=== PATIENT | female | born 1955 | race Caucasian/White ===

== ENCOUNTER 2019-02-02 14:26 | Inpatient (IN) ==
[2019-02-02] MEDS ORDERED: DILAUDID IV ONE ×4 (14:46→20:20)
[2019-02-02] MEDS ORDERED: ZOFRAN IV ONE (15:03)
[2019-02-02] MEDS ORDERED: NS 1,000 ML IV ONE (15:03)
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
[2019-02-02 16:45] LABS: BASO# 0.01 X1000 (0.0-0.2); BASO% 0.1 % (0.0-0.8); EOS# 0.01 X1000 (0.0-0.7); EOS% 0.1 % (0.0-10.0); HEMATOCRIT 37.7 % (37.0-47.0); HEMOGLOBIN 12.4 g/dL (12.0-16.0); IMM GRAN# 0.04 X1000 (0.0-0.04); IMM GRAN% 0.3 % (0.0-0.5); LYMPH# 1.19 X1000 (1.2-3.4); LYMPH% 8.1 % (20.5-51.1); MCH 28.8 PG (27-31); MCHC 32.9 g/dL (33-37); MCV 87.7 FL (81-99); MONO# 0.69 X1000 (0.11-0.59); MONO% 4.7 % (1.7-9.3); MPV 10.5 FL (7.4-10.4); NEUT# 12.72 X1000 (1.4-6.5); NEUT% 86.7 % (42.2-75.2); PLT 137 X1000 (130-400); RDW 12.9 % (11.5-14.5); WBC 14.66 X1000 (4.8-10.8)
[2019-02-02 16:47] LABS: INR 1.2; PROTIME 15.4 Seconds (11.0-16.0); PTT 29.4 Seconds (22.3-41.8)
[2019-02-02 17:10] LABS: CHLORIDE 106 mmol/L (98-107); POTASSIUM 3.7 mmol/L (3.5-5.1); SODIUM 143 mmol/L (136-145)
[2019-02-02 17:11] LABS: AGAP 13; ALB/GLOB RATIO 1.6; ALBUMIN 4.1 g/dL (3.5-5.0); ALKALINE PHOSPHATASE 83 U/L (32-104); BUN 15 mg/dL (8-22); CALCIUM 8.3 mg/dL (8.8-10.2); COSMO 290; CREATININE 0.6 mg/dL (0.5-0.9); ESTIMATED GFR > 60; GLUCOSE 169 mg/dL (70-104); GOT 26 U/L (10-30); GPT 17 U/L (10-36); TCO2 24 mmol/L (25-35); TOTAL BILIRUBIN 0.92 mg/dL (0.20-1.00); TOTAL PROTEIN 6.7 g/dL (6.3-8.3)
[2019-02-02 17:30] LABS: ALLEN TEST YES; BLOOD TYPE ARTERIAL; HCO3-(ACT) 24.1 mmoll (20.0-26.0); METHB 1.3 % (0.0-1.5); MODALITY CANNULA; O2(CT) 15.9 mL/dL (15.0-23.0); PCO2(98.6) 45 mmHg (35-45); PO2(98.6) 75 mmHg (60-100); SAMPLE BLOOD; SAO2 97.9 % (95.0-100.0); THB 12.1 g/dL (11.5-17.4); pH(98.6) 7.35 (7.35-7.45)
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
[2019-02-02] MEDS ORDERED: ZOSYN 4.5 GM in NS 100 ML IV ONE (19:12)
[2019-02-02] MEDS ORDERED: VANCOMYCIN 1 GM/NS 1 GM/250 ML IVPB IV ONE (19:12)
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
[2019-02-02 19:50] LABS: URINE SOURCE CATH
[2019-02-02 19:52] LABS: BILIRUBIN URINE NEGATIVE (NEGATIVE); BLOOD URINE SMALL (NEGATIVE); COLOR YELLOW; GLUCOSE URINE NEGATIVE (NEGATIVE); KETONE URINE NEGATIVE (NEGATIVE); LEUKOCYTES URINE NEGATIVE (NEGATIVE); NITRITE URINE NEGATIVE (NEGATIVE); PROTEIN URINE NEGATIVE (NEGATIVE); SP GRAVITY URINE 1.048; TURBIDITY URINE CLEAR (CLEAR); UR EPITHELIAL CELLS <10 /HPF (<10); URINE BACTERIA NEGATIVE /HPF; URINE RBC <10 /HPF (<10); URINE WBC <10 /HPF (<10); UROBILINOGEN URINE NORMAL (NORMAL)
[2019-02-02] MEDS ORDERED: TORADOL IV ONE (23:16)
[2019-02-03] MEDS ORDERED: DILAUDID IV PRN (00:07)
[2019-02-03] MEDS ORDERED: VANCOMYCIN IV PER PHARMACY MISC SCH (00:07)
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
[2019-02-03] MEDS: MIRALAX PO SCH ×2 (00:31→08:43)
[2019-02-03] MEDS: LOVENOX SUBQ SCH (00:34)
[2019-02-03] MEDS ORDERED: VANCOMYCIN 1 GM/NS 1 GM/250 ML IVPB IV ONE (01:00)
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
[2019-02-03] MEDS: MAXIPIME 2 GM in NS 100 ML IV SCH ×2 (01:35→13:04)
[2019-02-03] MEDS: DUONEB (A & A) INH SCH ×4 (02:59→21:41)
[2019-02-03] MEDS ORDERED: DILAUDID IV ONE (03:14)
[2019-02-03] MEDS: DILAUDID IV PRN ×4 (06:31→20:58)
[2019-02-03] MEDS: ZOFRAN IV PRN ×3 (06:31→17:36)
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
[2019-02-03] MEDS: TYLENOL PO SCH ×3 (08:43→17:36)
[2019-02-03] MEDS: PERICOLACE PO SCH ×3 (08:43→17:36)
[2019-02-03] MEDS: MOVANTIK PO SCH (08:43)
[2019-02-03 08:47] LABS: BASO# 0.01 X1000 (0.0-0.2); BASO% 0.1 % (0.0-0.8); HEMATOCRIT 35.3 % (37.0-47.0); HEMOGLOBIN 11.5 g/dL (12.0-16.0); IMM GRAN# 0.02 X1000 (0.0-0.04); IMM GRAN% 0.2 % (0.0-0.5); LYMPH# 0.68 X1000 (1.2-3.4); LYMPH% 5.5 % (20.5-51.1); MCH 28.4 PG (27-31); MCHC 32.6 g/dL (33-37); MCV 87.2 FL (81-99); MONO% 4.8 % (1.7-9.3); MPV 10.6 FL (7.4-10.4); NEUT# 11.07 X1000 (1.4-6.5); NEUT% 89.4 % (42.2-75.2); PLT 125 X1000 (130-400); RBC 4.05 XMIL (4.2-5.4); RDW 12.8 % (11.5-14.5); WBC 12.38 X1000 (4.8-10.8)
[2019-02-03 09:07] LABS: AGAP 11; BUN 11 mg/dL (8-22); CALCIUM 7.9 mg/dL (8.8-10.2); CHLORIDE 101 mmol/L (98-107); COSMO 272; CREATININE 0.5 mg/dL (0.5-0.9); ESTIMATED GFR > 60; GLUCOSE 144 mg/dL (70-104); POTASSIUM 3.6 mmol/L (3.5-5.1); SODIUM 135 mmol/L (136-145); TCO2 23 mmol/L (25-35)
[2019-02-03 09:15] LABS: BANDS 4 % (0-1); LYMPHS 6 % (21-51); SEGS 90 % (42-75)
[2019-02-03] MEDS: MOTRIN PO SCH ×3 (13:04→17:36)
[2019-02-03] MEDS: LIDODERM TOP SCH (14:34)
[2019-02-03] MEDS: VANCOMYCIN 1,600 MG in NS 250 ML IV SCH (18:36)
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
[2019-02-04] MEDS: MIRALAX PO SCH ×3 (00:13→20:34)
[2019-02-04] MEDS: DULCOLAX PR SCH ×3 (00:14→20:31)
[2019-02-04] MEDS: MAXIPIME 2 GM in NS 100 ML IV SCH ×2 (01:03→13:08)
[2019-02-04] MEDS: LOVENOX SUBQ SCH (01:04)
[2019-02-04] MEDS: ZOFRAN IV PRN ×2 (01:05→04:52)
[2019-02-04] MEDS: DILAUDID IV PRN ×3 (01:09→08:26)
[2019-02-04] MEDS: DUONEB (A & A) INH SCH ×2 (03:29→12:07)
[2019-02-04] MEDS: TYLENOL PO SCH ×3 (08:28→18:49)
[2019-02-04] MEDS: PERICOLACE PO SCH ×3 (08:28→18:49)
[2019-02-04] MEDS: MOTRIN PO SCH ×3 (08:28→18:49)
[2019-02-04] MEDS: MOVANTIK PO SCH (08:28)
[2019-02-04] MEDS: LIDODERM TOP SCH (08:29)
--- NOTE | 2019-02-04 12:39 | Diag Imaging Result Doc PS360 ---
EXAM: CT EXT LOWER RIGHT W/O CON INDICATION: Right Calcaneous Fracture TECHNIQUE: COMPARISON: None. FINDINGS: There is a comminuted fracture of the calcaneus. There are multiple fracture lines that extends through the body of the calcaneus to the subtalar joint, the anterior process of the calcaneus, and the anterior tuberosity of the calcaneus. There is mild depression of the calcaneus underlying the subtalar joint. There is a small bony fragment adjacent to the lateral malleolus that may represent a small avulsion fracture. There is no talar fracture and no distal tibial fracture. No other tarsal fractures are appreciated. There is soft tissue edema around the hindfoot. IMPRESSION: Comminuted fracture of the calcaneus as described and possible tiny avulsion fracture at the tip of the lateral malleolus. Electronically signed by Robbin Hanley 02/04/2019 12:37 PM
[2019-02-04] MEDS: OXY IR PO PRN ×3 (13:13→20:34)
--- NOTE | 2019-02-04 13:29 | PROGRESS NOTE ---
DATE: 02/04/2019 INTERVAL HISTORY: No acute event overnight. Orthopedic team has recommended outpatient Neurosurgery followup. A CT scan of the lower extremity has also been ordered. Apparently, the patient has been only receiving intravenous hydromorphone, and a pill bottle with pills spilled over her bed was found. She stated that it was her sister's, however, this history is questionable. She stated she did not consume any of the pills. Currently, she denies any chest pain or shortness of breath. She is coughing but sputum culture has not been collected. OBJECTIVE: Vital signs: Temperature 98, pulse 81, respiratory rate 18, blood pressure 140/70, saturating 98% on 2 L nasal cannula. PHYSICAL EXAMINATION: General: Does not appear in any acute distress. HEENT: Oral cavity is moist. Lungs: Air entry bilaterally equal. No wheeze or rhonchi. Mild inspiratory crackles infrascapular region. Heart: S1, S2 normal. Not tachycardic. No murmur, rub, or gallop. Abdomen: Soft, nontender. Extremities: Right lower extremity is in cast. LABORATORY: Essentially unremarkable. Blood cultures are in Lab. ASSESSMENT AND PLAN: 1. Bilateral pneumonia with failed outpatient antibiotics. 2. Right calcaneal fracture and subtle compression fracture of L1 and chronic compression deformity of L2. 3. Constipation. 4. Generalized body pain. 5. Others. Hypothyroidism, type 2 diabetes mellitus, essential hypertension, breast cancer. PLAN: I stopped IV hydromorphone and start patient on oral oxycodone. She has refused to take this suppository. I will continue her on MiraLAX and Senna and docusate. I will also keep her on vancomycin and cefepime until sputum is collected. Her urine antigens are in Lab. Continue on enoxaparin for DVT prophylaxis. Also keep her on acetaminophen, ibuprofen, lidocaine patch, and will start her on Flexeril as needed. DISPOSITION: Continue to monitor patient inside the hospital. Plan of care discussed with the her. Her questions have been answered. cc: MD ALYSHA Allen
[2019-02-04] MEDS: VANCOMYCIN 1,600 MG in NS 250 ML IV SCH (13:58)
--- NOTE | 2019-02-04 15:30 | ORTHOPAEDICS PROGRESS NOTE ---
DATE: 02/04/2019 SUBJECTIVE: Kaylee Dominguez is a 63-year-old female with a right os calcis fracture. She complains of continued pain in her heel and her back. OBJECTIVE: She is a well-developed, well-nourished female. She is alert and cooperative with exam. Her spleen is intact. Her toes are neurovascularly intact. She has mild tenderness in her lumbar spine. ASSESSMENT: 1. Right os calcis fracture. 2. Stable lumbar compression fracture. PLAN: I am going to order a CT scan of her heel. Also going to get physical therapy to see her and order a lumbar corset. I have written for p.o. pain medicine, Oxy IR 5 to 10 q. 3 hours as needed. We will get physical therapy to work with her to try to get her ambulatory. She will be nonweightbearing to touch down weightbearing on the right. As her back is concerned, she can weight bear as tolerated. cc: Bradley Qiu MD MTDD
[2019-02-04] MEDS: FLEXERIL PO PRN (16:32)
[2019-02-05] MEDS: MAXIPIME 2 GM in NS 100 ML IV SCH ×2 (01:59→13:39)
[2019-02-05] MEDS: LOVENOX SUBQ SCH ×2 (01:59→02:09)
[2019-02-05] MEDS: OXY IR PO PRN ×5 (03:25→20:25)
[2019-02-05] MEDS: VANCOMYCIN 1,600 MG in NS 250 ML IV SCH (06:35)
[2019-02-05 07:54] LABS: BASO# 0.01 X1000 (0.0-0.2); BASO% 0.2 % (0.0-0.8); EOS# 0.08 X1000 (0.0-0.7); EOS% 1.3 % (0.0-10.0); HEMATOCRIT 35.3 % (37.0-47.0); HEMOGLOBIN 11.6 g/dL (12.0-16.0); LYMPH# 0.94 X1000 (1.2-3.4); LYMPH% 15.3 % (20.5-51.1); MCH 28.8 PG (27-31); MCHC 32.9 g/dL (33-37); MCV 87.6 FL (81-99); MONO% 8.1 % (1.7-9.3); MPV 10.4 FL (7.4-10.4); NEUT# 4.61 X1000 (1.4-6.5); NEUT% 75.1 % (42.2-75.2); PLT 120 X1000 (130-400); RBC 4.03 XMIL (4.2-5.4); RDW 12.5 % (11.5-14.5); WBC 6.14 X1000 (4.8-10.8)
[2019-02-05 09:04] LABS: AGAP 15; BUN 13 mg/dL (8-22); CALCIUM 7.5 mg/dL (8.8-10.2); CHLORIDE 104 mmol/L (98-107); COSMO 282; CREATININE 0.5 mg/dL (0.5-0.9); ESTIMATED GFR > 60; GLUCOSE 117 mg/dL (70-104); POTASSIUM 4.8 mmol/L (3.5-5.1); SODIUM 141 mmol/L (136-145); TCO2 22 mmol/L (25-35)
[2019-02-05] MEDS: MOTRIN PO SCH ×3 (10:37→17:38)
[2019-02-05] MEDS: TYLENOL PO SCH ×3 (10:37→17:39)
[2019-02-05] MEDS: MOVANTIK PO SCH (10:37)
[2019-02-05] MEDS: PERICOLACE PO SCH ×3 (10:37→17:38)
[2019-02-05] MEDS: MIRALAX PO SCH ×3 (10:38→20:29)
[2019-02-05] MEDS: LIDODERM TOP SCH (10:38)
[2019-02-05] MEDS: DULCOLAX PR SCH ×2 (11:03→20:09)
[2019-02-05] MEDS ORDERED: KLONOPIN PO PRN (15:00)
[2019-02-05] MEDS: SYNTHROID PO SCH (16:20)
[2019-02-05] MEDS ORDERED: NEURONTIN PO SCH (17:00)
--- NOTE | 2019-02-05 18:02 | PROGRESS NOTE ---
DATE: 02/05/2019 INTERVAL HISTORY: No acute events overnight. SUBJECTIVE: Patient states she did have a bowel movement overnight and she is feeling better after it, still complaining of body ache . Denies any new complaints. I counseled her about adverse effect and dependence potential of opioid, benzodiazepine and tobacco, I counseled about quitting them, I counseled her about smoking cessation as well. VITALS: Temperature 97.5 degrees, pulse 84, respiratory 18, blood pressure 130/79 saturating 95% room air. PHYSICAL EXAMINATION: General: Does not appear in acute distress. Oral cavity is moist. Air entry bilateral equal. No wheeze, rhonchi, crackles. S1, S2 normal. No murmur, rub, or gallop. Abdomen: Soft, nontender. No lower extremity edema, she has a right lower extremity in cast, she also has a lumbar corset. LABS: Suggestive of normal WBC, normal hemoglobin, normal platelet count of 120,000, she has normal electrolytes, microbiology, blood culture no growth till date, sputum culture is pending. CT scan of lower extremity yesterday had suggested comminuted fracture of calcaneus with possible tiny avulsion fracture of the tip of the lateral malleolus. ASSESSMENT AND PLAN: 1. Bilateral pneumonia with failed outpatient antibiotics. Continue intravenous vancomycin, cefepime, she just produced sputum. I will follow up with the result. 2. Right calcaneus fracture and subtle compression fracture of L1 and chronic compression deformity of L2. Continue conservative management, nonweightbearing to touchdown weightbearing on right lower extremity and lumbar support as per Orthopedic recommendation and outpatient neurosurgery followup. 3. Constipation resolved. 4. Generalized body pain, continue oral oxycodone, ibuprofen, I would resume her home gabapentin as well as Klonopin as well. Patient was extensively counseled about side effects of opioids and addiction potential. She was counseled about not driving while under influence of these substances. 5. Others hypothyroidism, type 2 diabetes and essential hypertension and breast cancer are currently stable. PLAN: Follow up with sputum culture and chest x-ray tomorrow and if no surgical intervention plan from Orthopedic side discharge her home with possibly home physical therapy. Plan of care discussed with her, her questions have been answered. cc: Nick Wing MD [facility]
[2019-02-05] MEDS ORDERED: KLONOPIN PO SCH (21:00)
[2019-02-06] MEDS: VANCOMYCIN 1,600 MG in NS 250 ML IV SCH ×2 (01:23→14:06)
[2019-02-06] MEDS: MAXIPIME 2 GM in NS 100 ML IV SCH ×2 (01:23→12:12)
[2019-02-06] MEDS: LOVENOX SUBQ SCH (01:24)
[2019-02-06] MEDS: FLEXERIL PO PRN ×2 (01:38→05:50)
[2019-02-06] MEDS: OXY IR PO PRN ×5 (01:38→16:29)
--- NOTE | 2019-02-06 08:56 | Diag Imaging Result Doc PS360 ---
EXAM: CHEST-2 VIEWS HISTORY: Follow up pneumonia TECHNIQUE: Chest two views COMPARISON: 02/02/2019 FINDINGS: The lungs are well expanded. The heart is not enlarged. The vessels are not distended. There are minimal infiltrates remaining in the left lung base. No pleural effusions. Old injury to the left humerus. IMPRESSION: Marked interval improvement. Electronically signed by Jorge Son 02/06/2019 8:54 AM
[2019-02-06] MEDS: MOVANTIK PO SCH (09:08)
[2019-02-06] MEDS: LIDODERM TOP SCH (09:08)
[2019-02-06] MEDS: SYNTHROID PO SCH (09:08)
[2019-02-06] MEDS: TYLENOL PO SCH ×2 (09:08→12:11)
[2019-02-06] MEDS: MOTRIN PO SCH ×2 (09:08→12:11)
[2019-02-06] MEDS: MIRALAX PO SCH (09:08)
[2019-02-06] MEDS: NEURONTIN PO SCH ×2 (09:09→12:11)
[2019-02-06] MEDS: PERICOLACE PO SCH ×2 (09:09→12:11)
[2019-02-06] MEDS: DULCOLAX PR SCH (09:17)
[2019-02-06 12:28] VITALS: BP 165/79
[2019-02-06] MEDS ORDERED: LEVAQUIN PO ONE (14:20)
--- NOTE | 2019-02-06 16:51 | ORTHOPAEDICS PROGRESS NOTE ---
DATE: 02/06/2019 SUBJECTIVE: Ms Dominguez lying in bed, foot pain is controlled. Her back pain she is still getting a pretty good bit of back pain especially when she sits up. OBJECTIVE: Right lower extremity exam, her splint is clean, dry and intact. She has good sensation light touch to the toes. Good capillary refill to all the toes and she can move the toes up and down very well. IMAGING: CT scan right lower extremity shows a calcaneal fracture that is intraarticular, overall alignment does look good, there is not a lot of height loss and the joint lines up very well. ASSESSMENT: Right intraarticular calcaneal fracture. PLAN: I discussed with Ms. Dominguez about this calcaneus fracture. At this point will plan on nonoperative treatment overall, if it stays in this position I think she will heal well without going to surgery. She will be nonweightbearing right lower extremity. Physical therapy can begin to work with her really mobilizing her to get her out of bed. I did encourage her to get because that would help with her lungs and then when she is discharged from the hospital I will see her in 1 week in clinic. cc: Suleman Aguilar MD
[2019-02-07] MEDS ORDERED: LEVAQUIN PO SCH (09:00)
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
== END 2019-02-06 18:03 | disposition home health service (06) | DRG 562 ==
LOC: SUPCPDRO → ED 14:26 → 1N 14:27 → SUATTDRO 14:27
PROVIDERS: ATTEND Internal Medicine